=== PATIENT | female | born 1970 | race Caucasian/White ===

== ENCOUNTER 2021-05-15 05:37 | Outpatient (CLI) | payer OTHER ==
[~2021-05-15] VITALS: Ht 167.7 cm; Wt 105.5 kg
[~2021-05-15 05:37] MED LIST: PREN-94 PO
[2021-05-15] MEDS ORDERED: SIMV20TA PO (09:49)
[2021-05-15] MEDS ORDERED: LEVO1TAB18 PO (09:49)
== END 2021-05-15 10:33 | disposition home or self-care (01) ==
LOC: PREOP 05:37
PROVIDERS: ATTEND Surgery
DX: Z01.818 Encounter for other preprocedural examination (principal)

== ENCOUNTER 2021-05-22 08:50 | Day surgery (SDC) | payer OTHER ==
[~2021-05-22] VITALS: Ht 167.7 cm; Wt 105.5 kg
[2021-05-22] VITALS (12 sets, daily range): BP systolic 99–132; BP diastolic 49–77
[~2021-05-22 08:50] MED LIST changes: +LEVO1TAB18 PO; +SIMV20TA PO
[2021-05-22] MEDS ORDERED: NS IV 500 ML 500 ML ONE (09:14)
[2021-05-22] MEDS ORDERED: MIDAZOLAM 5 MG/5 ML (VERSED) VIAL IV ONE (09:15)
[2021-05-22] MEDS ORDERED: NS IV 500 ML 500 ML IV PRN (09:15)
[2021-05-22] MEDS ORDERED: fentaNYL INJ 100 MCG/2 ML AMP IVP ONE (09:15)
[2021-05-22] MEDS ORDERED: LIDOCAINE JELLY 2% 6 ML SYRINGE MM PRN (09:15)
[2021-05-22] MEDS ORDERED: MIDAZOLAM 5 MG/5 ML (VERSED) VIAL ONE (09:59)
[2021-05-22] MEDS ORDERED: fentaNYL INJ 100 MCG/2 ML AMP ONE ×2 (09:59→10:40)
--- NOTE | 2021-05-22 10:29 | Progress Note-Pre Operative ---
Pre-Operative Progress Note H&P Reviewed The H&P was reviewed, patient examined and no changes noted. Date Seen by Provider: May 22, 2021 Time Seen by Provider: : Date H&P Reviewed: May 22, 2021 Time H&P Reviewed: :30 Pre-Operative Diagnosis: screening OCTAVIANO Johnson MD May 22, 2021 10:29
--- NOTE | 2021-05-22 10:29 | Conscious Sedation/ASA ---
Conscious Sedation Pre-Proced Time 09:30 ASA Score 2 For ASA 3 and 4: Consider anesthesia and medical clearance. Also, for patients with a history of failed moderate sedation consider anesthesia. Airway Lungs Heart ASA score ASA 1: a normal healthy patient ASA 2: a patient with a mild systemic disease (mid diabetes, controlled hypertension, obesity ASA 3: a patient with a severe systemic disease that limits activity (angina, COPD, prior Myocardial infarction) ASA 4: a patient with an incapacitating disease that is a constant threat to life (CHF, renal failure) ASA 5: a moribund patient not expected to survive 24 hrs. (ruptured aneurysm) ASA 6: a declared brain- patient whose organs are being harvested. For emergent operations, add the letter E after the classification Mallampati Classification Grade 2 Sedation Plan Analgesia, Amnesia, Plan communicated to team members, Discussed options with patient/fam, Discussed risks with patient/fam The patient is an appropriate candidate to undergo the planned procedure, sedation, and anesthesia. The patient immediately re-assessed prior to indication. OCTAVIANO LOJA MD May 22, 2021 10:28
[2021-05-22] MEDS ORDERED: ONDANSETRON 4 MG (ZOFRAN) ORAL DISSOLVE TAB PO PRN (10:30)
[2021-05-22] MEDS ORDERED: ONDANSETRON 4 MG/2 ML (SDV) Z0FRAN IVP PRN (10:30)
--- NOTE | 2021-05-22 10:30 | Discharge Inst-Surgical ---
D/C Lap Instructions-PURVI Follow Up Activity as tolerated High Fiber Diet 25g or more per day Avoid Alcohol, Caffeine, Spicy [place] and Acid foods. Drink 64 fluid oz or more of fluids per day. Symptoms to Report: Fever over 101 degree F, Nausea/Vomiting If any problems/questions: Contact your physician or go to Emergency Room OCTAVIANO LOJA MD May 22, 2021 10:30
--- NOTE | 2021-05-22 11:12 | Progress Note-Post Operative ---
Post-Operative Progess Note Surgeon (s)/Suggestion Clerk (s) Surgeon OCTAVIANO LOJA MD Suggestion Clerk: none Pre-Operative Diagnosis screening colo Post-Operative Diagnosis mild chronic stage 2 ext and int hemorrhoids, mild-mod sigmoid diverticulosis. Procedure & Operative Findings Date of Procedure 05/22/21 Procedure Performed/Findings colonoscopy Anesthesia Type cs Estimated Blood Loss Estimated blood loss (mL): minimal Specimens/Packing Specimens Removed none OCTAVIANO LOJA MD May 22, 2021 11:12
--- NOTE | 2021-05-22 16:42 | OPERATIVE REPORT ---
DATE OF SERVICE: 05/22/2021 ATTENDING [employer] CHIEF: Bertha Pro APRN PREOPERATIVE DIAGNOSIS: Screening colonoscopy with family history of colon cancer. POSTOPERATIVE DIAGNOSES: Mild chronic stage II external and internal hemorrhoids, mild to moderate sigmoid diverticulosis. PROCEDURE: Colonoscopy. SURGEON: Octaviano Loja MD. ANESTHESIA: Conscious sedation. ESTIMATED BLOOD LOSS: Minimal. FINDINGS: Mild chronic stage II external and internal hemorrhoids, mild to moderate sigmoid diverticulosis. DISPOSITION: The patient tolerated the procedure well. INDICATIONS: The patient is a 50-year-old female in need of a screening colonoscopy. She states that she is doing well, does not report any major issues with diarrhea nor constipation as well as no red blood per rectum nor any dark tarry stools. She does report a family history of colon cancer with her mother being diagnosed with the disease. DESCRIPTION OF PROCEDURE: The patient was brought to the endoscopy suite, laid in the left lateral decubitus position. After adequate IV pain and sedative medications and conscious sedation anesthesia, digital rectal examination was performed. Mild chronic stage II external and internal hemorrhoids were identified, which were not actively edematous nor inflamed and no bleeding. Normal sphincter tone was felt and there were no palpable masses. The endoscope was then intubated and anus and rectum gently insufflated. The endoscope was then advanced to the valves of Tam of the rectum with no polyps or any neoplasms identified. We then proceeded through the sigmoid colon where mild to moderate sigmoid diverticulosis identified. The endoscope was then advanced in remainder of the descending, transverse and ascending colon to the cecum, which were normal. There were no polyps or any neoplasms identified throughout the colon or rectum. The endoscope was then slowly withdrawn while taking a second look and suctioning of residual air with no additional findings. The patient tolerated the procedure well. We will recommend a high fiber diet with a fiber supplement, which should equal or exceed 25 grams daily as well as significant amounts of water to promote soft stools on a daily basis. Due to her first-degree family history of colon cancer, we will recommend a followup colonoscopy in approximately 5 years. Job ID: [id number] DocumentID: [id number] Dictated Date: 05/22/2021 11:01:07 [employer] Date: 05/22/2021 16:41:08 Dictated By: OCTAVIANO LOJA MD
== END 2021-05-22 11:45 | disposition home or self-care (01) ==
LOC: ENDO 08:50
PROVIDERS: ATTEND Surgery
DX: Z12.11 Encounter for screening for malignant neoplasm of colon (principal); Z80.0 Family history of malignant neoplasm of digestive organs; K57.30 Diverticulosis of large intestine without perforation or abscess without bleeding; K64.1 Second degree hemorrhoids; Z79.899 Other long term (current) drug therapy; E78.5 Hyperlipidemia, unspecified
CPT/HCPCS: 84703